=== PATIENT | male | born 1945 | race Caucasian/White ===

== ENCOUNTER 2017-09-16 19:43 | Inpatient (IN) ==
[2017-09-16] MEDS ORDERED: VANCOMYCIN INJ 1,750 MG in SODIUM CHLORIDE 0.9% 250 ML IV STA (20:47)
[2017-09-16 21:07] LABS: Basophils % 0.4 % (0.0-0.8); Eosinophils % 0.1 % (0.00-10.9); Hematocrit 29.8 VOL% (42.0-52.0); Hemoglobin 10.8 GM/DL (14.0-18.0); Immature Granulocytes % 0.7 %; Immature Granulocytes Absolute 0.07 #; Lymphocytes # 0.7 10*3/uL (1.4-4.0); Lymphocytes % 7.7 % (21.2-54.2); Mean Corpuscular HGB Conc 36.2 GM/DL (32-36); Mean Corpuscular Hemoglobin 36 PG (27-34); Mean Corpuscular Volume 99.7 FL (87-102); Mean Platelet Volume 10.3 FL (9.6-12.0); Monocytes # 0.6 10*3/uL (0.11-0.8); Monocytes % 6.6 % (1.7-12.7); Neutrophils # 8.1 10*3/uL (1.4-7.4); Neutrophils % 84.5 % (38.7-73.9); Platelet Count 116 T/CUMM (130-400); Red Blood Count 2.99 MC/CUMM (3.8-5.5); Red Cell Distribution Width 13.6 % (9.3-17.3); White Blood Count 9.6 T/CUMM (4-12)
[2017-09-16 21:24] LABS: Albumin 3.1 G/DL (3.4-5.0); Bilirubin,Total 1.4 MG/DL (0.2-1.0); Calcium 9.3 MG/DL (8.5-10.1); Potassium 3.4 MMOL/L (3.5-5.1); Total Protein 6.7 G/DL (6.4-8.3)
[2017-09-16 21:46] LABS: Apearance,Urine CLEAR (Clear); Bacteria,Urine Occasional /HPF (Few); Bilirubin,Urine Negative (Negative); Blood, Urine Moderate mg/dL (Negative); Glucose,Urine (UA) 150 mg/dL (Negative); Ketones,Urine Negative (Negative); Nitrite,Urine Negative (Negative); Protein,Urine 100 MG/DL; RBC,Urine 3 /HPF (0-4); Squamous Epithelial Cell,Urine Occasional /HPF (0-10); Urine Color Yellow (Yellow); Urine Specific Gravity 1.012 (1.001-1.035); Urine Urobilinogen < 2.0 EU/DL (0.2-1.0); WBC,Urine <1 /HPF (0-6)
[2017-09-16] MEDS ORDERED: ONDANSETRON 4 MG/2 ML VIAL IV PRN (23:50)
[2017-09-16] MEDS ORDERED: VANCOMYCIN INJ 1,000 MG in SODIUM CHLORIDE 0.9% 250 ML IV PRN (23:54)
[2017-09-17] MEDS: ACETAMINOPHEN 325 MG TABLET PO PRN ×2 (02:05→17:30)
[2017-09-17] MEDS: HEPARIN 5,000 UNIT/1 ML VIAL SUBCUT SCH ×3 (02:10→17:31)
[2017-09-17] MEDS: PIPERACILLIN/TAZOBACTAM 3.375 MG in SODIUM CHLORIDE 0.9% 100 ML IV SCH ×2 (02:15→15:04)
[2017-09-17 03:20] LABS: Basophils % 0.3 % (0.0-0.8); Eosinophils % 0.2 % (0.00-10.9); Hematocrit 30.5 VOL% (42.0-52.0); Hemoglobin 10.5 GM/DL (14.0-18.0); Immature Granulocytes % 0.4 %; Immature Granulocytes Absolute 0.04 #; Lymphocytes # 1.9 10*3/uL (1.4-4.0); Lymphocytes % 19.3 % (21.2-54.2); Mean Corpuscular HGB Conc 34.4 GM/DL (32-36); Mean Corpuscular Hemoglobin 35 PG (27-34); Mean Corpuscular Volume 101.3 FL (87-102); Mean Platelet Volume 10.7 FL (9.6-12.0); Monocytes # 0.9 10*3/uL (0.11-0.8); Monocytes % 8.6 % (1.7-12.7); Neutrophils # 7.1 10*3/uL (1.4-7.4); Neutrophils % 71.2 % (38.7-73.9); Platelet Count 117 T/CUMM (130-400); Red Blood Count 3.01 MC/CUMM (3.8-5.5); Red Cell Distribution Width 13.7 % (9.3-17.3); White Blood Count 9.9 T/CUMM (4-12)
[2017-09-17 04:02] LABS: Albumin 2.9 G/DL (3.4-5.0); Bilirubin,Total 1.6 MG/DL (0.2-1.0); Calcium 8.9 MG/DL (8.5-10.1); Magnesium 2.4 MG/DL (1.8-2.4); Osmolality,Calculated 282.8 MOS/KG (273-304); Potassium 3.1 MMOL/L (3.5-5.1); Total Protein 5.7 G/DL (6.4-8.3)
[2017-09-17] MEDS ORDERED: SODIUM BICARBONATE 650 MG PO SCH (09:00)
[2017-09-17] MEDS: ROSUVASTATIN 20 MG TABLET PO SCH (09:29)
[2017-09-17] MEDS: CALCITRIOL 0.25 MCG CAPSULE PO SCH (09:29)
[2017-09-17] MEDS: SODIUM BICARBONATE 650 MG TABLET PO SCH ×2 (09:29→20:03)
[2017-09-17] MEDS: CALCIUM ACETATE 667 MG CAPSULE PO SCH (09:30)
[2017-09-17] MEDS: DUTASTERIDE 0.5 MG CAPSULE PO SCH (09:30)
[2017-09-17] MEDS: amLODIPine 10 MG TABLET PO SCH (09:30)
[2017-09-17] MEDS: SEVELAMER CARBONATE 800 MG TABLET PO SCH ×3 (09:30→17:31)
[2017-09-17] MEDS: PREGABALIN 50 MG CAPSULE PO SCH (09:30)
[2017-09-17] MEDS: ALFUZOSIN 10 MG TABLET PO SCH (09:31)
[2017-09-17] MEDS: LOSARTAN 25 MG TABLET PO SCH (20:03)
[2017-09-17 20:04] LABS: Prealbumin 26.1 MG/DL (20-40); Thyroid Stimulating Hormone 0.657 uIU/ml (0.358-3.74)
[2017-09-18] MEDS: PIPERACILLIN/TAZOBACTAM 3.375 MG in SODIUM CHLORIDE 0.9% 100 ML IV SCH ×2 (01:50→15:06)
[2017-09-18] MEDS: HEPARIN 5,000 UNIT/1 ML VIAL SUBCUT SCH ×3 (03:23→18:19)
[2017-09-18 07:00] LABS: Basophils % 0.4 % (0.0-0.8); Eosinophils # 0.2 10*3/uL (0.0-0.87); Eosinophils % 2.5 % (0.00-10.9); Hematocrit 26.6 VOL% (42.0-52.0); Hemoglobin 9.5 GM/DL (14.0-18.0); Immature Granulocytes % 0.7 %; Immature Granulocytes Absolute 0.05 #; Lymphocytes # 1.5 10*3/uL (1.4-4.0); Lymphocytes % 21.9 % (21.2-54.2); Mean Corpuscular HGB Conc 35.7 GM/DL (32-36); Mean Corpuscular Hemoglobin 36 PG (27-34); Mean Platelet Volume 10.1 FL (9.6-12.0); Monocytes # 0.4 10*3/uL (0.11-0.8); Neutrophils # 4.6 10*3/uL (1.4-7.4); Neutrophils % 68.5 % (38.7-73.9); Platelet Count 105 T/CUMM (130-400); Red Blood Count 2.66 MC/CUMM (3.8-5.5); Red Cell Distribution Width 13.4 % (9.3-17.3); White Blood Count 6.7 T/CUMM (4-12)
[2017-09-18 07:25] LABS: Albumin 2.4 G/DL (3.4-5.0); Bilirubin,Total 1.5 MG/DL (0.2-1.0); Calcium 8.8 MG/DL (8.5-10.1); Free T4 (Free Thyroxine) 0.87 NG/DL (0.76-1.46); Magnesium 2.4 MG/DL (1.8-2.4); Osmolality,Calculated 287.7 MOS/KG (273-304); Potassium 3.3 MMOL/L (3.5-5.1); Risk Ratio 6.67; Total Protein 5.2 G/DL (6.4-8.3); VLDL CHOLESTEROL 72.8 MG/DL
[2017-09-18] MEDS: SODIUM BICARBONATE 650 MG TABLET PO SCH ×2 (09:44→20:49)
[2017-09-18] MEDS: CALCIUM ACETATE 667 MG CAPSULE PO SCH (09:44)
[2017-09-18] MEDS: ROSUVASTATIN 20 MG TABLET PO SCH (09:44)
[2017-09-18] MEDS: CALCITRIOL 0.25 MCG CAPSULE PO SCH (09:44)
[2017-09-18] MEDS: SEVELAMER CARBONATE 800 MG TABLET PO SCH ×3 (09:44→17:25)
[2017-09-18] MEDS: ALFUZOSIN 10 MG TABLET PO SCH (09:44)
[2017-09-18] MEDS: amLODIPine 10 MG TABLET PO SCH (09:44)
[2017-09-18] MEDS: PREGABALIN 50 MG CAPSULE PO SCH (09:45)
[2017-09-18] MEDS: DUTASTERIDE 0.5 MG CAPSULE PO SCH (09:45)
[2017-09-18] MEDS: LOSARTAN 25 MG TABLET PO SCH (20:49)
[2017-09-19] MEDS: PIPERACILLIN/TAZOBACTAM 3.375 MG in SODIUM CHLORIDE 0.9% 100 ML IV SCH ×2 (01:42→17:01)
[2017-09-19] MEDS: HEPARIN 5,000 UNIT/1 ML VIAL SUBCUT SCH ×3 (01:44→18:14)
[2017-09-19 08:17] LABS: Basophils % 0.4 % (0.0-0.8); Eosinophils # 0.2 10*3/uL (0.0-0.87); Eosinophils % 4.3 % (0.00-10.9); Hematocrit 24.7 VOL% (42.0-52.0); Hemoglobin 8.9 GM/DL (14.0-18.0); Immature Granulocytes % 0.6 %; Immature Granulocytes Absolute 0.03 #; Lymphocytes # 1.3 10*3/uL (1.4-4.0); Lymphocytes % 23.7 % (21.2-54.2); Mean Corpuscular Hemoglobin 36 PG (27-34); Mean Corpuscular Volume 99.2 FL (87-102); Mean Platelet Volume 10.3 FL (9.6-12.0); Monocytes # 0.4 10*3/uL (0.11-0.8); Monocytes % 7.4 % (1.7-12.7); Neutrophils # 3.5 10*3/uL (1.4-7.4); Neutrophils % 63.6 % (38.7-73.9); Platelet Count 107 T/CUMM (130-400); Red Blood Count 2.49 MC/CUMM (3.8-5.5); Red Cell Distribution Width 13.2 % (9.3-17.3); White Blood Count 5.4 T/CUMM (4-12)
[2017-09-19 08:55] LABS: Albumin 2.3 G/DL (3.4-5.0); Calcium 8.3 MG/DL (8.5-10.1); Potassium 3.6 MMOL/L (3.5-5.1); Total Protein 5.2 G/DL (6.4-8.3)
[2017-09-19] MEDS: DUTASTERIDE 0.5 MG CAPSULE PO SCH (09:05)
[2017-09-19] MEDS: SEVELAMER CARBONATE 800 MG TABLET PO SCH ×3 (09:05→17:03)
[2017-09-19] MEDS: CALCIUM ACETATE 667 MG CAPSULE PO SCH (09:05)
[2017-09-19] MEDS: SODIUM BICARBONATE 650 MG TABLET PO SCH ×2 (09:05→22:00)
[2017-09-19] MEDS: amLODIPine 10 MG TABLET PO SCH (09:05)
[2017-09-19] MEDS: ALFUZOSIN 10 MG TABLET PO SCH (09:06)
[2017-09-19] MEDS: CALCITRIOL 0.25 MCG CAPSULE PO SCH (09:06)
[2017-09-19] MEDS: PREGABALIN 50 MG CAPSULE PO SCH (09:06)
[2017-09-19] MEDS: ROSUVASTATIN 20 MG TABLET PO SCH (09:06)
[2017-09-19] MEDS ORDERED: VANCOMYCIN INJ 1,000 MG in SODIUM CHLORIDE 0.9% 250 ML IV ONE (17:00)
[2017-09-19] MEDS ORDERED: GABAPENTIN 300 MG CAPSULE PO SCH (21:00)
[2017-09-19] MEDS: LOSARTAN 25 MG TABLET PO SCH (22:00)
[2017-09-20] MEDS: HEPARIN 5,000 UNIT/1 ML VIAL SUBCUT SCH ×2 (01:52→09:01)
[2017-09-20 06:52] LABS: Basophils % 0.6 % (0.0-0.8); Eosinophils # 0.2 10*3/uL (0.0-0.87); Eosinophils % 3.7 % (0.00-10.9); Hematocrit 26.6 VOL% (42.0-52.0); Hemoglobin 9.3 GM/DL (14.0-18.0); Immature Granulocytes % 0.8 %; Immature Granulocytes Absolute 0.04 #; Lymphocytes # 1.4 10*3/uL (1.4-4.0); Lymphocytes % 26.9 % (21.2-54.2); Mean Corpuscular Hemoglobin 35 PG (27-34); Mean Corpuscular Volume 98.9 FL (87-102); Mean Platelet Volume 10.2 FL (9.6-12.0); Monocytes # 0.4 10*3/uL (0.11-0.8); Monocytes % 8.3 % (1.7-12.7); Neutrophils % 59.7 % (38.7-73.9); Platelet Count 127 T/CUMM (130-400); Red Blood Count 2.69 MC/CUMM (3.8-5.5); Red Cell Distribution Width 13.1 % (9.3-17.3); White Blood Count 5.1 T/CUMM (4-12)
[2017-09-20 07:25] LABS: Magnesium 2.3 MG/DL (1.8-2.4); Osmolality,Calculated 278.8 MOS/KG (273-304); Potassium 3.7 MMOL/L (3.5-5.1)
[2017-09-20] MEDS: SEVELAMER CARBONATE 800 MG TABLET PO SCH (09:01)
[2017-09-20] MEDS: PREGABALIN 50 MG CAPSULE PO SCH (09:01)
[2017-09-20] MEDS: ALFUZOSIN 10 MG TABLET PO SCH (09:01)
[2017-09-20] MEDS: ROSUVASTATIN 20 MG TABLET PO SCH (09:01)
[2017-09-20] MEDS: CALCITRIOL 0.25 MCG CAPSULE PO SCH (09:01)
[2017-09-20] MEDS: DUTASTERIDE 0.5 MG CAPSULE PO SCH (09:01)
[2017-09-20] MEDS: SODIUM BICARBONATE 650 MG TABLET PO SCH (09:01)
[2017-09-20 10:28] VITALS: BP 120/55
== END 2017-09-20 11:54 | disposition home or self-care (01) | DRG 853 ==
LOC: N.ED 19:43 → N.EDINP 23:47 → N.5E 09-17 01:09
PROVIDERS: ADMIT Internal Medicine; ATTEND Internal Medicine

== ENCOUNTER 2017-09-26 08:22 | Observation (INO) ==
[2017-09-26] MEDS ORDERED: HEPARIN 5,000 UNIT/1 ML VIAL ONE (08:34)
[2017-09-26] MEDS ORDERED: ACETAMINOPHEN 325 MG TABLET PO PRN (12:28)
[2017-09-26] MEDS ORDERED: GLUCAGON 1 MG VIAL IM PRN (12:28)
[2017-09-26] MEDS ORDERED: LACTULOSE 20 GM/30 ML UDCUP PO PRN (12:28)
[2017-09-26] MEDS ORDERED: DEXTROSE 50% 25 GM/50 ML VIAL IV PRN (12:28)
[2017-09-26] MEDS ORDERED: DOCUSATE SODIUM 100 MG CAPSULE PO PRN (12:28)
[2017-09-26] MEDS ORDERED: SODIUM CHLORIDE 0.9% IV PRN (12:45)
[2017-09-26] MEDS ORDERED: VANCOMYCIN IV PRN (12:45)
[2017-09-26] MEDS ORDERED: SODIUM CHLORIDE 0.9% 1,000 ML IV SCH (13:00)
[2017-09-26 13:04] LABS: Basophils # 0.1 10*3/uL (0.0-0.2); Basophils % 0.6 % (0.0-0.8); Eosinophils # 0.1 10*3/uL (0.0-0.87); Eosinophils % 1.3 % (0.00-10.9); Hemoglobin 9.9 GM/DL (14.0-18.0); Immature Granulocytes % 0.8 %; Immature Granulocytes Absolute 0.07 #; Lymphocytes # 1.8 10*3/uL (1.4-4.0); Lymphocytes % 19.9 % (21.2-54.2); Mean Corpuscular HGB Conc 34.1 GM/DL (32-36); Mean Corpuscular Hemoglobin 35 PG (27-34); Mean Platelet Volume 9.4 FL (9.6-12.0); Monocytes # 0.5 10*3/uL (0.11-0.8); Monocytes % 5.3 % (1.7-12.7); Neutrophils # 6.4 10*3/uL (1.4-7.4); Neutrophils % 72.1 % (38.7-73.9); Platelet Count 259 T/CUMM (130-400); Red Blood Count 2.87 MC/CUMM (3.8-5.5); Red Cell Distribution Width 13.2 % (9.3-17.3); White Blood Count 8.9 T/CUMM (4-12)
[2017-09-26 13:36] LABS: Osmolality,Calculated 285.8 MOS/KG (273-304); Potassium 4.3 MMOL/L (3.5-5.1)
[2017-09-26] MEDS: PIPERACILLIN/TAZOBACTAM 3,375 MG in SODIUM CHLORIDE 0.9% 100 ML IV SCH (14:11)
[2017-09-26 17:12] LABS: Apearance,Urine CLEAR (Clear); Bilirubin,Urine Negative (Negative); Blood, Urine Small mg/dL (Negative); Glucose,Urine (UA) 150 mg/dL (Negative); Ketones,Urine Negative (Negative); Nitrite,Urine Negative (Negative); Protein,Urine 100 MG/DL; RBC,Urine <1 /HPF (0-4); Squamous Epithelial Cell,Urine Occasional /HPF (0-10); Urine Color Straw (Yellow); Urine Specific Gravity 1.005 (1.001-1.035); Urine Urobilinogen < 2.0 EU/DL (0.2-1.0); WBC,Urine <1 /HPF (0-6)
[2017-09-26] MEDS: VANCOMYCIN INJ 2,250 MG in SODIUM CHLORIDE 0.9% 500 ML IV ONE ×2 (18:07)
[2017-09-26] MEDS: INSULIN LISPRO 100 UNIT/ML SUBCUT SCH ×2 (18:19→21:51)
[2017-09-27] MEDS: PIPERACILLIN/TAZOBACTAM 3,375 MG in SODIUM CHLORIDE 0.9% 100 ML IV SCH ×2 (01:25→16:59)
[2017-09-27] MEDS: INSULIN LISPRO 100 UNIT/ML SUBCUT SCH ×4 (10:58→22:00)
[2017-09-27 11:46] LABS: Calcium 9.2 MG/DL (8.5-10.1); Osmolality,Calculated 289.8 MOS/KG (273-304); Potassium 4.2 MMOL/L (3.5-5.1)
[2017-09-27] MEDS ORDERED: ALFUZOSIN 10 MG TABLET PO SCH (21:00)
[2017-09-27] MEDS ORDERED: GABAPENTIN 300 MG CAPSULE PO SCH (21:00)
[2017-09-27] MEDS ORDERED: LOSARTAN 25 MG TABLET PO SCH (21:00)
[2017-09-27] MEDS ORDERED: ROSUVASTATIN 20 MG TABLET PO SCH (21:00)
[2017-09-27] MEDS: SODIUM BICARBONATE 650 MG TABLET PO SCH (21:31)
[2017-09-28] MEDS: INSULIN LISPRO 100 UNIT/ML SUBCUT SCH ×3 (07:43→17:16)
[2017-09-28 07:59] LABS: Basophils % 0.6 % (0.0-0.8); Eosinophils # 0.1 10*3/uL (0.0-0.87); Hemoglobin 10.1 GM/DL (14.0-18.0); Immature Granulocytes % 0.6 %; Immature Granulocytes Absolute 0.04 #; Lymphocytes # 1.9 10*3/uL (1.4-4.0); Mean Corpuscular HGB Conc 34.8 GM/DL (32-36); Mean Corpuscular Hemoglobin 35 PG (27-34); Mean Platelet Volume 9.4 FL (9.6-12.0); Monocytes # 0.4 10*3/uL (0.11-0.8); Monocytes % 6.4 % (1.7-12.7); Neutrophils # 4.1 10*3/uL (1.4-7.4); Neutrophils % 61.4 % (38.7-73.9); Platelet Count 261 T/CUMM (130-400); Red Blood Count 2.93 MC/CUMM (3.8-5.5); Red Cell Distribution Width 12.8 % (9.3-17.3); White Blood Count 6.6 T/CUMM (4-12)
[2017-09-28] MEDS: SEVELAMER CARBONATE 800 MG TABLET PO SCH ×3 (08:05→17:17)
[2017-09-28] MEDS: SODIUM BICARBONATE 650 MG TABLET PO SCH (08:05)
[2017-09-28 08:33] LABS: Calcium 9.6 MG/DL (8.5-10.1); Osmolality,Calculated 290.8 MOS/KG (273-304); Potassium 4.6 MMOL/L (3.5-5.1)
[2017-09-28] MEDS: PIPERACILLIN/TAZOBACTAM 3,375 MG in SODIUM CHLORIDE 0.9% 100 ML IV SCH (08:38)
[2017-09-28] MEDS ORDERED: HEPARIN 1,000 UNIT/1 ML VIAL ONE (08:54)
[2017-09-28] MEDS ORDERED: CALCITRIOL 0.25 MCG CAPSULE PO SCH (09:00)
[2017-09-28] MEDS ORDERED: CYANOCOBALAMIN 500 MCG TABLET PO SCH (09:00)
[2017-09-28] MEDS ORDERED: ALTEPLASE 2 MG VIAL ONE ×2 (09:29→09:55)
[2017-09-28] MEDS ORDERED: SODIUM CHLORIDE 0.9% IV ONE (14:00)
[2017-09-28] MEDS ORDERED: VANCOMYCIN IV ONE (14:00)
[2017-09-28] MEDS ORDERED: DUTASTERIDE 0.5 MG CAPSULE PO SCH (17:00)
[2017-09-28 17:18] VITALS: BP 134/72
== END 2017-09-28 18:50 | disposition home or self-care (01) ==
LOC: N.RAD 08:22 → INTOOBSV 11:40 → N.2E 11:40 → SUATTDRO 11:52
PROVIDERS: ADMIT Internal Medicine; ATTEND Internal Medicine

== ENCOUNTER 2020-03-16 14:12 | Observation (INO) ==
[2020-03-16 15:25] LABS: Basophils % 0.5 % (0.0-0.8); Eosinophils # 0.1 10*3/uL (0.0-0.87); Eosinophils % 1.5 % (0.00-10.9); Hematocrit 32.2 VOL% (42.0-52.0); Hemoglobin 11.1 GM/DL (14.0-18.0); Immature Granulocytes % 1.2 %; Immature Granulocytes Absolute 0.08 #; Lymphocytes # 1.3 10*3/uL (1.4-4.0); Lymphocytes % 20.2 % (21.2-54.2); Mean Corpuscular HGB Conc 34.5 GM/DL (32-36); Mean Corpuscular Volume 98.5 FL (87-102); Mean Platelet Volume 10.8 FL (9.6-12.0); Monocytes % 5.9 % (1.7-12.7); Neutrophils % 70.7 % (38.7-73.9); Platelet Count 143 T/CUMM (130-400); Red Blood Count 3.27 MC/CUMM (3.8-5.5); Red Cell Distribution Width 13.5 % (9.3-17.3); White Blood Count 6.5 T/CUMM (4-12)
[2020-03-16 15:35] LABS: PT Patient Result 10.8 SECS (9.8-11.9); Partial Thromboplastin Time 29.3 SECS (23.9-33.8)
[2020-03-16 15:44] LABS: Alanine Aminotransferase 23 U/L (16-61); Albumin 2.9 G/DL (3.4-5.0); Alkaline Phosphatase 79 U/L (45-117); Aspartate Amino Transferase 48 U/L (0-37); Blood Urea Nitrogen 38 MG/DL (7-18); Estimated Glom Filtration Rate 7 ML/MIN; Glucose 103 MG/DL (74-106); Osmolality,Calculated 276.2 MOS/KG (273-304); Total Protein 6.9 G/DL (6.4-8.3); Troponin I 0.065 NG/ML (0.00-0.045)
[2020-03-16] MEDS ORDERED: ACETAMINOPHEN 500 MG TABLET ONE (19:45)
[2020-03-16] MEDS ORDERED: ACETAMINOPHEN 500 MG TABLET PO STA (19:59)
[2020-03-16] MEDS ORDERED: DEXTROSE 50% 25 GM/50 ML SYRINGE IV PRN (20:02)
[2020-03-16] MEDS ORDERED: GLUCAGON 1 MG VIAL IM PRN (20:02)
[2020-03-16] MEDS ORDERED: ONDANSETRON 4 MG/2 ML VIAL IV PRN (20:02)
[2020-03-16] MEDS ORDERED: guaiFENesin/DM ER 600-30 MG TABLET PO PRN (20:02)
[2020-03-16] MEDS: ENOXAPARIN 30 MG/0.3 ML SYRINGE SUBCUT SCH (23:53)
[2020-03-17 05:47] LABS: Basophils % 0.6 % (0.0-0.8); Eosinophils % 0.8 % (0.00-10.9); Hematocrit 32.7 VOL% (42.0-52.0); Hemoglobin 10.9 GM/DL (14.0-18.0); Immature Granulocytes % 1.4 %; Immature Granulocytes Absolute 0.07 #; Lymphocytes # 1.8 10*3/uL (1.4-4.0); Lymphocytes % 35.7 % (21.2-54.2); Mean Corpuscular HGB Conc 33.3 GM/DL (32-36); Mean Corpuscular Volume 98.8 FL (87-102); Mean Platelet Volume 9.7 FL (9.6-12.0); Monocytes % 8.6 % (1.7-12.7); Neutrophils % 52.9 % (38.7-73.9); Platelet Count 122 T/CUMM (130-400); Red Blood Count 3.31 MC/CUMM (3.8-5.5); Red Cell Distribution Width 13.4 % (9.3-17.3)
[2020-03-17 06:03] LABS: Osmolality,Calculated 282.1 MOS/KG (273-304)
[2020-03-17] MEDS: ACETAMINOPHEN 325 MG TABLET PO PRN ×3 (06:20→21:35)
[2020-03-17 07:25] LABS: Troponin I 0.123 NG/ML (0.00-0.045)
[2020-03-17] MEDS: PANTOPRAZOLE 40 MG TABLET PO SCH (09:56)
[2020-03-17] MEDS: ENOXAPARIN 30 MG/0.3 ML SYRINGE SUBCUT SCH (21:45)
[2020-03-18] MEDS: PANTOPRAZOLE 40 MG TABLET PO SCH (08:12)
[2020-03-18 09:52] VITALS: BP 124/79
== END 2020-03-18 16:03 | disposition home or self-care (01) ==
LOC: N.EDINP 14:12 → N.ED 14:12 → SUATTDRO 20:39 → N.2E 22:26
PROVIDERS: ADMIT Emergency Medicine; ATTEND Internal Medicine Geriatric Medicine